=== PATIENT | female | born 1990 | race Caucasian/White ===

== ENCOUNTER 2020-03-08 18:08 | Emergency (ER) | payer OTHER ==
--- NOTE | 2020-03-08 21:09 | ER Document Report ---
ED Medical Screen (RME) - General Chief Complaint: Chest Pain Stated Complaint: CHEST PAIN - HPI Notes: Patient is a 29-year-old female with no medical history who presents with chest pain for the past 2 weeks. Patient states her chest pain started on the left side near the axilla but has worsened over the past couple days and spread across her chest. She has tried taking ibuprofen and naproxen with no relief. She denies shortness of breath, abdominal pain, nausea, vomiting, and fever. - Related Data Allergies/Adverse Reactions: Sulfa (Sulfonamide Antibiotics) Allergy (Verified 03/08/20 20:44) Past Medical History - Social History Frequency of alcohol use: Rare Physical Exam - Vital signs Vitals: Temp Pulse Resp BP Pulse Ox 97.9 F 79 20 139/91 H 100 03/08/20 18:50 03/08/20 18:50 03/08/20 18:50 03/08/20 18:50 03/08/20 18:50 - Respiratory Respiratory status: No respiratory distress Breath sounds: Normal - Cardiovascular Rhythm: Regular Heart sounds: Normal auscultation Course - Re-evaluation Re-evalutation: I have greeted and performed a rapid initial assessment of this patient. A comprehensive ED assessment and evaluation of the patient, analysis of test results and completion of medical decision making process will be conducted by an additional ED providers. - Vital Signs Vital signs: Temp Pulse Resp BP Pulse Ox 97.9 F 79 20 139/91 H 100 03/08/20 18:50 03/08/20 18:50 03/08/20 18:50 03/08/20 18:50 03/08/20 18:50
--- NOTE | 2020-03-08 22:26 | RADIOLOGY REPORT (SQ) ---
EXAM DESCRIPTION: CHEST SINGLE VIEW CLINICAL HISTORY: 29 years Female, chest pain COMPARISON: None. FINDINGS: Lungs: Lungs are clear. No pneumonia or edema. No pneumothorax or pleural effusion. Mediastinum: Cardiac and mediastinal silhouette are normal. Bones: Osseous structures are normal. IMPRESSION: Unremarkable single view of the chest. No acute process.
[2020-03-08 23:36] LABS: ABSOLUTE BASOPHILS # (AUTO) 0.1 10^3/uL (0.0-0.2); ABSOLUTE EOSINOPHILS # (AUTO) 0.2 10^3/uL (0.0-0.6); ABSOLUTE LYMPHOCYTES (AUTO) 2.6 10^3/uL (0.5-4.7); ABSOLUTE MONOCYTES (AUTO) 0.7 10^3/uL (0.1-1.4); ABSOLUTE NEUT (AUTO) 4.1 10^3/uL (1.7-8.2); BASOPHILS % (AUTO) 0.8 % (0-2); EOSINOPHILS % (AUTO) 2.8 % (0-6); HEMATOCRIT 37.3 % (36.0-47.0); HEMOGLOBIN 12.8 g/dL (12.0-15.5); LYMPHOCYTES % (AUTO) 34.2 % (13-45); MEAN CORPUSCULAR HGB CONC 34.3 g/dL (32.0-36.0); MEAN CORPUSCULAR VOLUME 85 fl (80-97); PLATELET COUNT 262 10^3/uL (150-450); RED BLOOD COUNT 4.41 10^6/uL (3.72-5.28); SEGMENTED NEUTROPHILS % (AUTO) 53.2 % (42-78); TOTAL CELLS COUNTED % (AUTO) 100 %; WHITE BLOOD COUNT 7.7 10^3/uL (4.0-10.5)
--- NOTE | 2020-03-08 23:57 | ER Document Report ---
ED General - General Chief Complaint: Chest Pain Stated Complaint: CHEST PAIN Time Seen by Provider: 03/08/20 23:45 - HPI Notes: 29-year-old female presents with chest wall pain. Patient states that she has had a pain to her left upper chest wall/under her axilla/base of neck for the past 2 weeks. 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 She states that the pain is sharp and radiates across her pec muscle. She states that the pain had actually gotten better at one point but now returned today. She states that she took NSAIDs which cause worsening of her pain. She states she went to urgent care was told that she could not be seen there. She has not been able to see her primary care doctor. - Related Data Allergies/Adverse Reactions: Sulfa (Sulfonamide Antibiotics) Allergy (Verified 03/08/20 20:44) Past Medical History - General Information source: Patient - Social History Smoking Status: Never Smoker Frequency of alcohol use: Rare Family History: Reviewed & Not Pertinent Patient has homicidal ideation: No Review of Systems - Review of Systems Constitutional: No symptoms reported EENT: No symptoms reported Cardiovascular: See HPI Respiratory: denies: Short of breath Gastrointestinal: No symptoms reported Genitourinary: No symptoms reported Female Genitourinary: No symptoms reported Musculoskeletal: Muscle pain Skin: No symptoms reported Hematologic/Lymphatic: No symptoms reported Neurological/Psychological: No symptoms reported Physical Exam - Vital signs Vitals: Temp Pulse Resp BP Pulse Ox 97.9 F 79 20 139/91 H 100 03/08/20 18:50 03/08/20 18:50 03/08/20 18:50 03/08/20 18:50 03/08/20 18:50 - General General appearance: Appears well, Alert In distress: None - HEENT Head: Normocephalic, Atraumatic Pupils: PERRL Neck: Other - Hypertonicity to left trapezius - Respiratory Chest status: Tender - To left superior aspect of the chest near pectoral origin Breath sounds: Normal - Cardiovascular Rhythm: Regular Heart sounds: Normal auscultation - Abdominal Tenderness: Nontender - Extremities General upper extremity: Normal ROM General lower extremity: Normal ROM Notes: No wound/swelling/erythema to left axilla - Neurological Neuro grossly intact: Yes Cognition: Normal Orientation: AAOx4 - Psychological Associated symptoms: Normal affect - Skin Skin Temperature: Warm Course - Re-evaluation Re-evalutation: 29-year-old female with chest wall pain, has tenderness over the pectoral and trapezius areas. Is been present for the past 2 weeks. Her EKG is nonischemic. Chest x-rays without consolidation. I have very low suspicion this to be cardiac etiology at all. Very likely this is musculoskeletal in origin. Unsure what to make of her complaints and symptoms made the pain worse. I advised her to use topical diclofenac, Flexeril and lidocaine patches for her symptoms. Encouraged her to follow-up with her primary care doctor. Return precautions g riddhi, stable at time of discharge. - Vital Signs Vital signs: Temp Pulse Resp BP Pulse Ox 98.1 F 76 38 H 122/70 100 03/08/20 23:28 03/08/20 23:28 03/09/20 00:28 03/09/20 00:28 03/09/20 00:28 - Laboratory Result Diagrams: 03/08/20 23:26 03/08/20 23:26 Laboratory results interpreted by me: 03/08/20 23:26 BUN 21 H Total Protein 6.1 L - Diagnostic Test Radiology reviewed: Image reviewed, Reports reviewed - EKG Interpretation by Me Additional EKG results interpreted by me: EKG is interpreted by me. Normal sinus rhythm, rate 75. Narrow QRS, QTC within normal limits. No ST segment elevation or depression. Discharge - Discharge Clinical Impression: Chest wall pain Disposition: HOME, SELF-CARE Additional Instructions: Can trial lidocaine patches, topical diclofenac and Flexeril for symptoms. Please help with your primary care doctor. Return to the emergency department for any concerning worsening symptoms. Prescriptions: Diclofenac Sodium 100 gm TP BID #100 gel..gram. Cyclobenzaprine HCl [Flexeril 10 mg Tablet] 10 mg PO TIDP PRN #15 tab PRN Reason:
[2020-03-09 00:10] LABS: ALBUMIN 3.5 g/dL (3.5-5.0); ALKALINE PHOSPHATASE 44 U/L (38-126); ANION GAP 5 (5-19); ASPARTATE AMINO TRANSFERASE 31 U/L (14-36); BILIRUBIN,TOTAL 0.3 mg/dL (0.2-1.3); BLOOD UREA NITROGEN 21 mg/dL (7-20); CALCIUM 9.4 mg/dL (8.4-10.2); CARBON DIOXIDE 27 mmol/L (22-30); CHLORIDE 106 mmol/L (98-107); GLUCOSE 101 mg/dL (75-110); POTASSIUM 3.8 mmol/L (3.6-5.0); TOTAL PROTEIN 6.1 g/dL (6.3-8.2)
[2020-03-09] MEDS ORDERED: LIDOCAINE 5% (700 MG) TRANSDERMAL ADH..PATCH TP ONE (00:12)
[2020-03-09 00:45] VITALS: BP 122/70
--- NOTE | 2020-03-09 07:35 | EKG REPORT ---
SEVERITY:- NORMAL ECG - SINUS RHYTHM : Confirmed by: Francisco J Fields MD 09-Mar-2020 07:34:48
== END 2020-03-09 00:38 | disposition home or self-care (01) ==
LOC: ER 18:08
DX: R07.89 Other chest pain (principal); M79.603 Pain in arm, unspecified; M54.2 Cervicalgia; M79.18 Myalgia, other site; Z88.2 Allergy status to sulfonamides
CPT/HCPCS: 36415; 71045; 80053; 84484; 84703; 85025; 93005; 93010; 99285